=== PATIENT | female | born 1960 | race Caucasian/White ===

== ENCOUNTER 2018-10-18 11:01 | Emergency (ER) | payer OTHER ==
[~2018-10-18] VITALS: Ht 160 cm; Wt 94.8 kg
--- NOTE | 2018-10-18 11:08 | NUR ---
PATIENT WHEELCHAIR ASSISTED TO BED 8.
[2018-10-18 11:10] VITALS: BP 198/94
--- NOTE | 2018-10-18 11:16 | NUR ---
BIB FAMILY W/ C/O CONSTANT LT KNEE PAIN 10/10 RADIATING TO LT GROIN X 2 DAYS. DENIES RECENT INJURY. PER PT SHE HAD A HARD TIME SLEEPING HX; DM, HTN
--- NOTE | 2018-10-18 11:24 | NUR ---
PT TAKEN TO X RAY VIA W/C, ACCOMPANIED BY [employer]OUD OPERATIONS ENGINEER.
[2018-10-18] MEDS ORDERED: KETOROLAC 30 MG/ML VIAL IM ONE (12:05)
--- NOTE | 2018-10-18 12:09 | NUR ---
XRAY AT BEDSIDE
[2018-10-18 13:19] VITALS: BP 157/95
--- NOTE | 2018-10-18 13:25 | NUR ---
Patient discharged with v/s stable. Written and verbal after care instructions given and explained. Patient alert, oriented and verbalized understanding of instructions. Ambulatory with steady gait. All questions addressed prior to discharge. ID band removed. Patient advised to follow up with PMD. Rx of NORCO,IBU given. Patient educated on indication of medication including possible reaction and side effects. Opportunity to ask questions provided and answered.
== END 2018-10-18 13:25 | disposition home or self-care (01) ==
LOC: MED 11:01
DX: M79.605 Pain in left leg (principal); M25.552 Pain in left hip; E11.9 Type 2 diabetes mellitus without complications; I10 Essential (primary) hypertension
CPT/HCPCS: 73552; 73562; 82948; 96372; 99284; J1885; Q0092; 81002; 81025